=== PATIENT | female | born 1965 | race Caucasian/White ===

== ENCOUNTER → 2017-02-12 | Outpatient (CLI) | payer OTHER | LOC: KOH-I 10:35 | DX: M25.562 Pain in left knee (principal) | CPT/HCPCS: 73564 ==

== ENCOUNTER → 2021-06-02 | Outpatient (CLI) | payer BC ==
[~2021-06-02] MED LIST: CALCIUM600 MG PO; LISINOPRIL20 MG PO; PLAQUENIL200 MG PO; SINGULAIR10 MG PO; TOUJEO MAX300 UNIT/1 SQ; VITAMIN D3125 MCG PO; WOMEN'S 50 PLU1 EACH PO
== END ==
LOC: KOH-I 09:33
DX: M54.2 Cervicalgia (principal); M54.5 Low back pain; R05 Cough; M47.814 Spondylosis without myelopathy or radiculopathy, thoracic region; M25.78 Osteophyte, vertebrae
CPT/HCPCS: 71046; 72040; 72070; 72100

== ENCOUNTER → 2021-07-01 | Outpatient (CLI) | payer BC | LOC: CT 07:24 | DX: R25.0 Abnormal head movements (principal) | CPT/HCPCS: 70470; Q9967 ==